=== PATIENT | female | born 1995 | race Caucasian/White ===

== ENCOUNTER 2019-07-08 05:45 | Day surgery (SDC) | payer OTHER, BC ==
[2019-07-08] MEDS ORDERED: PROPOFOL 20 ML (08:05)
[2019-07-08] MEDS ORDERED: MIDAZOLAM 1 MG/ML 2 ML INJ IV (08:30)
[2019-07-08] MEDS ORDERED: FENTAnyl 50 MCG/ML VIAL IV ×3 (08:30)
[2019-07-08] MEDS ORDERED: METOCLOPRAMIDE 10 MG INJ IV (08:30)
[2019-07-08] MEDS ORDERED: ONDANSETRON 4 MG INJ IV (08:30)
[2019-07-08] MEDS ORDERED: DIPHENHYDRAMINE 50 MG INJ IV (08:30)
[2019-07-08] MEDS ORDERED: OXYCODONE/ACETAMINOPHEN (5/325) TAB PO ×2 (08:30)
[2019-07-08] MEDS ORDERED: MEPERIDINE 25 MG INJ IV (08:30)
[2019-07-08] MEDS ORDERED: FENTAnyl 50 MCG/ML VIAL (16:05)
[2019-07-08] MEDS ORDERED: MIDAZOLAM 1 MG/ML 2 ML INJ (16:05)
== END 2019-07-08 13:11 | disposition home or self-care (01) ==
LOC: GIL 05:45
DX: R12 Heartburn (principal); K21.9 Gastro-esophageal reflux disease without esophagitis
CPT/HCPCS: 43239; 84703; 88305; 88312